=== PATIENT | female | born 2000 | race American Indian/Alaskan Native ===

== ENCOUNTER 2022-02-19 07:55 | Emergency (ER) | payer SELFPAY ==
[2022-02-19 09:25] VITALS: BP 122/72
[2022-02-19 10:38] LABS: HCG Qualitative,Urine Negative (Negative)
[2022-02-19 10:48] LABS: Mucus,Urine 3+ /HPF
[2022-02-19 10:53] LABS: Color,Urine Yellow (Yellow)
[2022-02-19] MEDS ORDERED: SODIUM CHLORIDE 0.9% 1000 ML 1,000 ML IV ONE (10:57)
[2022-02-19] MEDS ORDERED: FAMOTIDINE 20 MG TAB PO ONE (10:57)
[2022-02-19] MEDS ORDERED: ONDANSETRON 4 MG/2 ML INJ IV ONE (10:57)
[2022-02-19 10:59] LABS: Bilirubin,Urine Negative (Negative); Blood,Urine Small (Negative)
[2022-02-19 11:00] LABS: Protein,Urine <30 mg dL mg/dL (Negative); Urobilinogen,Urine < 2.0 mg/dL (<2.0)
--- NOTE | 2022-02-19 11:01 | Emergency Department Report ---
ED N/V/D HPI - General Chief complaint: Urogenital-Female Stated complaint: UPSET STOMACH PUI?: No Time Seen by Provider: 02/19/22 10:50 Source: patient Mode of arrival: Ambulatory Limitations: No Limitations - History of Present Illness Initial comments: 22-year-old female who denies any significant past medical history presents to the ER today with complaints of nausea and vomiting. Patient states that she has been vomiting since Thursday. She states that her emesis is nonbilious. She denies hematemesis or coffee-ground emesis. She reports associated epigastric discomfort. She states that she has had a good bowel movement in about 2 days.. When she tried to have 1 this morning it was only a small amount of stool. She has not taken any [id number] medications to help her constipation. She denies any UTI symptoms. She states that because she is on Depo she does not typically have menstrual cycles. She denies any ill contacts or recent travel. She denies any bad food intake or recent antibiotic use. She denies any fever or chills. MD complaint: nausea, vomiting, abdominal pain -: days(s) (3) - Related Data Previous Rx's Medication Instructions Recorded Last Taken Type Docusate Sodium [Colace] 100 mg PO BID PRN #20 capsule 02/19/22 Unknown Rx Famotidine [Pepcid] 20 mg PO BID #30 tablet 02/19/22 Unknown Rx Ondansetron [Zofran Odt] 4 mg PO Q8HR PRN #15 tab.rapdis 02/19/22 Unknown Rx Allergies Allergy/AdvReac Type Severity Reaction Status Date / Time No Known Allergies Allergy Verified 02/19/22 09:18 ED Review of Systems ROS: Stated complaint: UPSET STOMACH Other details as noted in HPI Comment: All other systems reviewed and negative Constitutional: denies: chills, fever Eyes: denies: eye pain, eye discharge, vision change ENT: denies: ear pain, throat pain Respiratory: denies: cough, shortness of breath, SOB with exertion, SOB at rest, wheezing Gastrointestinal: abdominal pain, nausea, vomiting, constipation Genitourinary: denies: urgency, dysuria, frequency, hematuria, discharge, abnormal menses, dyspareunia Musculoskeletal: denies: back pain, joint swelling, arthralgia, myalgia Skin: denies: rash, lesions, change in color, change in hair/nails, pruritus Neurological: denies: headache, weakness, paresthesias, confusion, abnormal gait, vertigo ED Past Medical Hx - Medications Home Medications: Home Medications Medication Instructions Recorded Confirmed Last Taken Type Docusate Sodium [Colace] 100 mg PO BID PRN #20 capsule 02/19/22 Unknown Rx Famotidine [Pepcid] 20 mg PO BID #30 tablet 02/19/22 Unknown Rx Ondansetron [Zofran Odt] 4 mg PO Q8HR PRN #15 tab.rapdis 02/19/22 Unknown Rx ED Physical Exam - General Limitations: No Limitations General appearance: alert, anxious - Head Head exam: Present: atraumatic, normocephalic, normal inspection - Neck Neck exam: Present: normal inspection, full ROM. Absent: meningismus - Respiratory Respiratory exam: Present: normal lung sounds bilaterally. Absent: respiratory distress, wheezes, rales, rhonchi - Cardiovascular Cardiovascular Exam: Present: regular rate, normal rhythm, normal heart sounds - GI/Abdominal GI/Abdominal exam: Present: soft, tenderness (Mild epigastric ttp ). Absent: distended, guarding, rebound - Neurological Exam Neurological exam: Present: alert, oriented X3, CN II-XII intact, normal gait - Psychiatric Psychiatric exam: Present: normal affect, normal mood - Skin Skin exam: Present: intact ED Course Vital Signs 02/19/22 09:22 Temperature 98.2 F Pulse Rate 76 Respiratory 16 Rate Blood Pressure 122/72 [Left] O2 Sat by Pulse 100 Oximetry ED Medical Decision Making - Lab Data Result diagrams: 02/19/22 11:13 02/19/22 11:13 - Medical Decision Making Patient reports feeling better after IV fluids, Pepcid and Zofran. She is well- appearing and nontoxic. She has not had any vomiting during stay. She is neur ologically intact and her gait is normal. Her vital signs are stable. She has a nonsurgical abdominal exam. Work-up today reviewed and shows no significant abnormalities. Discussed results with patient. Symptoms could be related to a viral infection. Recommend that she continue to drink lots of fluids and will give medications to help her symptoms. Recommend follow-up with her primary care doctor. Patient expressed understanding agree with plan. Patient was stable at time of discharge. Critical care attestation.: If time is entered above; I have spent that time in minutes in the direct care of this critically ill patient, excluding procedure time. ED Disposition Clinical Impression: Epigastric discomfort, Vomiting, Gastroenteritis Disposition: 01 HOME / SELF CARE / HOMELESS Is pt being admited?: No Does the pt Need Aspirin: No Condition: Stable Instructions: Viral Gastroenteritis, Adult, [id number], Nausea and Vomiting, Adult, [id number], [place] Diet Additional Instructions: I recommend that you take the Zofran and the Pepcid to help with nausea and your epigastric discomfort. You can take Colace to help with your bowel movements. Follow the bland diet as listed on discharge instructions. Continue to drink lots of fluids including water, Pedialyte or Gatorade. Follow-up closely with your primary care doctor. Return to the ER if your symptoms changes or worsens in any way. Prescriptions: Docusate Sodium [Colace] 100 mg PO BID PRN #20 capsule PRN Reason: Constipation Famotidine [Pepcid] 20 mg PO BID #30 tablet Ondansetron [Zofran Odt] 4 mg PO Q8HR PRN #15 tab.rapdis PRN Reason: Vomiting Referrals: PRIMARY CARE, [Primary Care Provider] - 3-5 Days Forms: Work/School Release Form(ED) Time of Disposition: 11:53
[2022-02-19 11:31] LABS: Basophils # (Auto) 0.1 K/mm3 (0.0-0.1); Basophils % (Auto) 0.8 % (0.0-1.8); Eosinophils % (Auto) 0.2 % (0.0-4.3); Hematocrit 41.4 % (30.3-42.9); Hemoglobin 13.7 gm/dl (10.1-14.3); Lymphocytes # (Auto) 2.3 K/mm3 (1.2-5.4); Lymphocytes % (Auto) 33.9 % (13.4-35.0); Mean Corpuscular HGB Conc 33 % (30-34); Mean Corpuscular Volume 86 fl (79-97); Monocytes # (Auto) 0.3 K/mm3 (0.0-0.8); Platelet Count 194 K/mm3 (140-440); Red Blood Count 4.81 M/mm3 (3.65-5.03); Red Cell Distribution Width 13.2 % (13.2-15.2)
[2022-02-19 11:50] LABS: Alanine Aminotransferase 10 units/L (7-56); Albumin 4.7 g/dL (3.9-5); BUN/Creatinine Ratio 13; Blood Urea Nitrogen 12 mg/dL (7-17); Hemolysis Index 14
== END 2022-02-19 12:03 | disposition home or self-care (01) ==
LOC: ED 07:55
DX: R10.13 Epigastric pain (principal); R11.10 Vomiting, unspecified; K52.9 Noninfective gastroenteritis and colitis, unspecified
CPT/HCPCS: 36415; 80053; 81001; 81025; 83690; 85025; 96361; 96374; 99283; J2405; J7030; Q0162